=== PATIENT | female | born 1935 | race African-American/Black ===

== ENCOUNTER 2024-05-10 13:01 | Emergency (ER) | payer OTHER, MEDICAID ==
[~2024-05-10] VITALS: Ht 167.6 cm; Wt 55.0 kg
[2024-05-10 13:06] VITALS: O2SAT 99
[2024-05-10] MEDS: IOHEXOL-350 100 ML BOTTLE ONE (13:41)
[2024-05-10 13:58] LABS: HEMOGLOBIN. 8.9 g/dL (12.0-16.0); MEAN CORPUSCULAR HGB CONC 32.2 g/dL (31.0-37.0); WHITE BLOOD COUNT 12.2 x1000/uL (4.5-11.0)
[2024-05-10 14:03] LABS: CHLORIDE 100 mEq/L (98-107); SODIUM 137 mEq/L (136-145)
[2024-05-10 14:04] LABS: CALCIUM 9.5 mg/dL (8.7-10.4); CARBON DIOXIDE 29 mEq/L (21-32); HEMATOCRIT. 27.8 % (36.0-48.0); MEAN CORPUSCULAR HEMOGLOBIN 26.1 pg (28.0-32.0); MEAN PLATELET VOLUME 8.4 fl (7.4-10.4); PLATELET 425 x1000/uL (130-400); RED BLOOD CELL COUNT 3.43 mill/uL (4.2-5.4); RED CELL DISTRIBUTION WIDTH 16.9 % (11.6-14.6)
[2024-05-10 14:08] LABS: DIFFERENTIAL COMMENT 1; INR 1.2; PROTHROMBIN TIME 12.9 sec (9.6-11.0)
[2024-05-10 14:09] LABS: CREATININE 0.8 mg/dL (0.6-1.0); GLUCOSE 100 mg/dL (70-105); UREA NITROGEN BLOOD 19 mg/dL (9-23)
[2024-05-10 14:25] LABS: ETHANOL BLOOD < 10 mg/dL (<10)
[2024-05-10 14:33] LABS: ANISOCYTOSIS 1+; PLATELET ESTIMATE INCREASED
[2024-05-10 15:50] LABS: CLARITY URINE CLOUDY (CLEAR); COLOR URINE YELLOW (YELLOW); GLUCOSE URINE NEGATIVE (NEGATIVE); KETONES URINE NEGATIVE (NEGATIVE); LEUKOCYTE ESTERASE URINE 3+ (NEGATIVE); NITRITE URINE POSITIVE (NEGATIVE); OCCULT BLOOD URINE 2+ (NEGATIVE); PROTEIN URINE 1+ (NEGATIVE); SPECIFIC GRAVITY URINE 1.039 (1.005-1.030)
[2024-05-10 16:03] LABS: *AMPHETAMINES SCREEN URINE NEGATIVE (NEGATIVE); *BARBITURATES SCREEN URINE NEGATIVE (NEGATIVE); *BENZODIAZEPINES SCREEN URINE NEGATIVE (NEGATIVE); *COCAINE SCREEN URINE NEGATIVE (NEGATIVE); CANNABINOID URINE SCREEN NEGATIVE (NEGATIVE); METHADONE URINE SCREEN NEGATIVE (NEGATIVE); OPIATES URINE SCREEN NEGATIVE (NEGATIVE); PHENCYCLIDINE URINE SCREEN NEGATIVE (NEGATIVE)
[2024-05-10 16:07] LABS: WBC URINE TNTC /hpf (0-2)
[2024-05-10 16:08] LABS: RBC URINE 25-50 /hpf (0-2); SQUAMOUS EPITHELIAL CELL URINE FEW /lpf (RARE/1+)
[2024-05-10 16:10] LABS: BACTERIA URINE 4+
[2024-05-10 17:22] VITALS: TEMP 98.7
[2024-05-10] MEDS: LABETALOL 5MG/ML 4ML INJ IV ONE (18:33)
[2024-05-10 18:49] VITALS: BP 181/82; PULSE 72; RESP 19
== END 2024-05-10 18:55 | disposition short-term general hospital (02) ==
LOC: ER 13:01 → EDBEDREQ 13:30 → EDBEDREQSVC 15:25 → CANBEDREQ 16:41 → ER 18:55
DX: I63.9 Cerebral infarction, unspecified (principal); I10 Essential (primary) hypertension
CPT/HCPCS: 80305; 80048; 81003; 80320; 82962; 85025; 85610; 87086; 87186; 87077; 36415; 71045; 70496; 70498; 70450; 93005; 96374; 99291; Q9967; J3490; G0480